=== PATIENT | male | born 1950 | race Caucasian/White ===

== ENCOUNTER → 2017-03-08 | Outpatient (CLI) | payer MEDICARE, OTHER ==
[2017-03-08 17:01] LABS: CREATININE, serum 0.98 mg/dL (0.66-1.25)
== END ==
LOC: COL.LAB 16:08
PROVIDERS: Student in an Organized Health Care Education/Training Program
DX: Z01.89 Encounter for other specified special examinations (principal)

== ENCOUNTER 2017-04-08 10:16 | Day surgery (SDC) | payer MEDICARE, OTHER ==
[~2017-04-08] VITALS: Ht 177.8 cm; Wt 53.0 kg
[2017-04-08] VITALS (7 sets, daily range): BP systolic 144–178; BP diastolic 71–96; PULSE 47–65; TEMP 97–98.6
[2017-04-08 11:22] LABS: CALCIUM 9.9 mg/dL (8.4-10.2); CREATININE, serum 0.79 mg/dL (0.66-1.25); POTASSIUM 4.8 mmol/L (3.4-5.0)
[2017-04-08] MEDS ORDERED: ZOLOFT 50MG50 MG PO (11:26)
[2017-04-08] MEDS ORDERED: PERIDEX (CHLOR480 ML MM (11:27)
[2017-04-08] MEDS ORDERED: PROSCAR 5MG5 MG PO (11:27)
[2017-04-08] MEDS ORDERED: NORCO 325 MG-51 TAB PO ×2 (11:27→14:22)
[2017-04-08] MEDS ORDERED: ZESTRIL40 MG PO (11:29)
[2017-04-08] MEDS ORDERED: FORT1000TA PO (11:30)
[2017-04-08] MEDS ORDERED: TOPROL XL 25MG25 MG PO (11:31)
[2017-04-08] MEDS ORDERED: LIPITOR 80MG80 MG PO (11:32)
[2017-04-08] MEDS ORDERED: ASPIRIN 32325 MG/TAB PO (11:32)
[2017-04-08] MEDS ORDERED: PRILOSEC 20MG20 MG PO (14:22)
[2017-04-08] MEDS ORDERED: COLACE 100100 MG/CAP PO (14:22)
== END 2017-04-08 17:09 | disposition home or self-care (01) ==
LOC: SDCO 10:16
PROVIDERS: Surgery
DX: C10.9 Malignant neoplasm of oropharynx, unspecified (principal); C77.9 Secondary and unspecified malignant neoplasm of lymph node, unspecified; C01 Malignant neoplasm of base of tongue; K29.70 Gastritis, unspecified, without bleeding; E43 Unspecified severe protein-calorie malnutrition; I10 Essential (primary) hypertension; E11.9 Type 2 diabetes mellitus without complications; Z79.84 Long term (current) use of oral hypoglycemic drugs; Z85.46 Personal history of malignant neoplasm of prostate; I25.10 Atherosclerotic heart disease of native coronary artery without angina pectoris; Z95.5 Presence of coronary angioplasty implant and graft; Z87.891 Personal history of nicotine dependence; Z82.49 Family history of ischemic heart disease and other diseases of the circulatory system; Z79.82 Long term (current) use of aspirin; E78.00 Pure hypercholesterolemia, unspecified; R13.10 Dysphagia, unspecified; R49.0 Dysphonia
CPT/HCPCS: C1788; J0330; J0690; J1644; J1885; J2405; J2704; J3010; J7030

== ENCOUNTER 2017-06-09 10:00 | Outpatient (RCR) | payer MEDICARE, OTHER ==
[~2017-06-09] VITALS: Ht 177.8 cm; Wt 70.4 kg
[2017-06-09] VITALS (11 sets, daily range): BP systolic 128–172; BP diastolic 71–93; PULSE 54–62; TEMP 97.9–98.5
[~2017-06-09 10:00] MED LIST: ASPIRIN 32325 MG/TAB PO; COLACE 100100 MG/CAP PO; FORT1000TA PO; LIPITOR 80MG80 MG PO; NORCO 325 MG-51 TAB PO; PERIDEX (CHLOR480 ML MM; PRILOSEC 20MG20 MG PO; PROSCAR 5MG5 MG PO; TOPROL XL 25MG25 MG PO; ZESTRIL40 MG PO; ZOLOFT 50MG50 MG PO
== END 2017-06-09 13:56 | disposition home or self-care (01) ==
LOC: EUO 10:00
DX: C77.0 Secondary and unspecified malignant neoplasm of lymph nodes of head, face and neck (principal); C01 Malignant neoplasm of base of tongue
CPT/HCPCS: J7050; P9016

== ENCOUNTER 2017-07-04 09:00 | Outpatient (RCR) | payer MEDICARE, OTHER | END 2017-07-05 | disposition home or self-care (01) | LOC: WSST | DX: R13.12 Dysphagia, oropharyngeal phase (principal); C01 Malignant neoplasm of base of tongue; I10 Essential (primary) hypertension | CPT/HCPCS: G8996-GN; G8997-GN ==

== ENCOUNTER 2017-08-15 10:00 | Outpatient (RCR) | payer MEDICARE, OTHER | END 2017-10-09 | disposition home or self-care (01) | LOC: WSST | DX: C01 Malignant neoplasm of base of tongue (principal); I10 Essential (primary) hypertension | CPT/HCPCS: G8997-GN; G8998-GN ==

== ENCOUNTER → 2018-11-14 | Outpatient (CLI) | payer MEDICARE, OTHER | LOC: COL.RAD 08:18 | DX: S43.492A Other sprain of left shoulder joint, initial encounter (principal) | CPT/HCPCS: J3301; Q9967 ==

== ENCOUNTER 2019-03-07 14:23 | Emergency (ER) | payer MEDICARE, OTHER ==
[~2019-03-07] VITALS: Ht 177.8 cm; Wt 64.5 kg
[2019-03-07 14:32] VITALS: TEMP 97.3
[2019-03-07 15:37] LABS: HEMOGLOBIN 11.1 g/dl (13.5-18.0); MEAN CELL VOLUME 102 fl (80.0-100.0); MEAN CORPUSCULAR HEMOGLOBIN 34 pg (27.0-31.0); MEAN CORPUSCULAR HGB CONC 33 g/dl (33.0-37.0); MEAN PLATELET VOLUME 10.3 fl (7.4-10.4); PLATELET COUNT 238 K/mm3 (130-400); RED BLOOD COUNT 3.28 M/mm3 (4.20-5.60); REDCELL DISTRIBUTION WIDTH-CV 12.6 % (11.5-14.5)
[2019-03-07 15:43] LABS: HEMATOCRIT 33.3 % (42.0-52.0)
[2019-03-07 15:54] LABS: ALBUMIN 3.9 gm/dL (3.5-5.0); BILIRUBIN,TOTAL 0.4 mg/dL (0.0-1.0); CALCIUM 9.3 mg/dL (8.4-10.2); CREATININE, serum 0.88 (0.66-1.25); POTASSIUM 4.3 mmol/L (3.4-5.0); TOTAL PROTEIN 6.9 gm/dL (6.4-8.2)
[2019-03-07 15:56] LABS: BAND 2 % (0-10); EOSINOPHIL 1 % (0-4); LYMPHOCYTE 3 % (20.0-51.0); NEUTROPHILS 88 % (42.0-75.2); PLATELET ESTIMATE NORMAL (NORMAL)
[2019-03-07 16:48] LABS: COLLECTION METHOD CLEAN CATCH
[2019-03-07 17:08] LABS: PH 7 (5-8); SQUAMOUS EPITHELIAL None Seen /hpf; URINE APPEARANCE Hazy; URINE BACTERIA Rare /hpf; URINE BILIRUBIN Negative (NEGATIVE); URINE BLOOD 2+ (NEGATIVE); URINE COLOR Yellow; URINE GLUCOSE 1+ (NEGATIVE); URINE KETONE Negative (NEGATIVE); URINE LEUKOCYTE ESTERASE Negative (NEGATIVE); URINE NITRATE Negative (NEGATIVE); URINE PROTEIN(semi-quant) Negative (NEGATIVE); URINE UROBILINOGEN Negative (NEGATIVE)
[2019-03-07 18:20] VITALS: BP 163/89; PULSE 87
== END 2019-03-07 18:41 | disposition home or self-care (01) ==
LOC: COL.ER 14:23
PROVIDERS: Family Medicine
DX: K59.00 Constipation, unspecified (principal); E86.0 Dehydration; Z79.84 Long term (current) use of oral hypoglycemic drugs; Z79.82 Long term (current) use of aspirin; Z85.818 Personal history of malignant neoplasm of other sites of lip, oral cavity, and pharynx
CPT/HCPCS: J2405; J2550; J7030

== ENCOUNTER 2019-03-26 13:58 | Outpatient (RCR) | payer MEDICARE, OTHER ==
[2019-03-29] MEDS ORDERED: NORCO 325 MG-51 TAB PO (08:22)
[2019-03-29] MEDS ORDERED: LEVEMIR100 U/ML SQ (08:23)
[2019-03-29] MEDS ORDERED: NOVOLOG 100U100 U/M1 SQ (08:27)
[2019-03-29] MEDS ORDERED: PRILOSEC 20MG20 MG PO (08:28)
[2019-03-29] MEDS ORDERED: FENTANYL 25 MCG TD (08:29)
[2019-03-29] MEDS ORDERED: DOXYCYCLINE 10100 MG PO (08:31)
[2019-03-29] MEDS ORDERED: REMERON30 MG PO (08:31)
[2019-03-29] MEDS ORDERED: ZOFRAN 4MG T4 MG/TAB PO (08:32)
[2019-03-29] MEDS ORDERED: SYNTHROID0.075 MG/T PO (08:32)
[2019-03-29] MEDS ORDERED: COMPAZINE 110 MG/TAB PO (08:33)
[2019-05-05] MEDS ORDERED: DIFLUCAN200 MG PO (19:54)
[2019-05-05] MEDS ORDERED: ZOVIRAX 200MG200 MG PO (19:55)
[2019-05-09] MEDS ORDERED: IPRATROPIUM BROM3 M1 IH (09:23)
[2019-05-09] MEDS ORDERED: ZOFRAN ODT8 MG PO (09:25)
[2019-05-09] MEDS ORDERED: FENTANYL 25 MCG TD (09:26)
[2019-05-09] MEDS ORDERED: TRANSDERM-0.5 MG/21 TD (09:28)
[2019-05-09] MEDS ORDERED: ROXANOL 20MG20 MG/ML SL (09:28)
[2019-05-09] MEDS ORDERED: ARTIFICIAL TEAR15 M7 OP (09:28)
[2019-05-09] MEDS ORDERED: DULCOLAX S10 MG/SUPP RC (09:28)
[2019-05-09] MEDS ORDERED: ATIVAN 1MG T1 MG/TAB PO (09:28)
[2019-05-09] MEDS ORDERED: OXYGEN MC (09:32)
== END 2019-06-24 | disposition home or self-care (01) ==
LOC: WSST
DX: C01 Malignant neoplasm of base of tongue (principal); E11.9 Type 2 diabetes mellitus without complications

== ENCOUNTER → 2019-03-26 | Outpatient (CLI) | payer MEDICARE, OTHER | LOC: COL.RAD 09:06 | DX: M25.512 Pain in left shoulder (principal) | CPT/HCPCS: J3301; Q9967 ==

== ENCOUNTER 2019-03-29 07:36 | Outpatient (CLI) | payer MEDICARE, OTHER ==
[~2019-03-29] VITALS: Ht 177.8 cm; Wt 62.0 kg
[2019-03-29 08:19] VITALS: BP 144/84; PULSE 57; TEMP 98.3
[2019-03-29] MEDS ORDERED: NORCO 325 MG-51 TAB PO (08:22)
[2019-03-29] MEDS ORDERED: LEVEMIR100 U/ML SQ (08:23)
[2019-03-29] MEDS ORDERED: NOVOLOG 100U100 U/M1 SQ (08:27)
[2019-03-29] MEDS ORDERED: PRILOSEC 20MG20 MG PO (08:28)
[2019-03-29] MEDS ORDERED: FENTANYL 25 MCG TD (08:29)
[2019-03-29] MEDS ORDERED: DOXYCYCLINE 10100 MG PO (08:31)
[2019-03-29] MEDS ORDERED: REMERON30 MG PO (08:31)
[2019-03-29] MEDS ORDERED: SYNTHROID0.075 MG/T PO (08:32)
[2019-03-29] MEDS ORDERED: ZOFRAN 4MG T4 MG/TAB PO (08:32)
[2019-03-29] MEDS ORDERED: COMPAZINE 110 MG/TAB PO (08:33)
[2019-03-29 08:37] LABS: POTASSIUM 4.5 mmol/L (3.4-5.0)
--- NOTE | 2019-03-29 08:57 | NUR ---
Pt presented for chemotherapy treatent with erbitux today which is his first treatment. accompanies him. Initial premedications are in process. Pharmacist Johnny Raymond is here to talk with pt and his about side effects and provided printed information. Admission assessment completed by Vera OBREGON.
--- NOTE | 2019-03-29 11:24 | NUR ---
1040 Pt began to feel nauseated, flushed, and was moist with perspiration. His vital signs remained stable, BP 147/82, P67, 02 [id number], and respirations re mained unlabored at 18. Pt got to the toilet to throw up during this time. Dr Panchal's office notified of pt symptoms, the fact the first bag of 100mg was completed and the second bag had not been started. During the break from the medication, pt reported that he was feeling better. Dr Panchal did order solumedrol 62.5mg IV x1 and this was given after the line was flushed with 10ml NS. Pt continues to report that he is feeling more like normal again.
--- NOTE | 2019-03-29 11:48 | NUR ---
Pt is sleeping at this time with slow steady respirations. Erbitux was restarted at 25ml/hr after talking with Dr Panchal as pt had reported feeling "pretty back to where he started from". BP 158/90, R 16, P75.
--- NOTE | 2019-03-29 12:11 | NUR ---
BP 156/99, P55, R 16. Pt continues to sleep in semi fowlers position. went home for a little while. Erbitux continues at 25ml/hr.
--- NOTE | 2019-03-29 13:36 | NUR ---
Pt has developed a rash on his face, arms and legs. Dr Panchal was notified at the office at 1248 of rash and concern over Joaquin's elevated BP running in 160's over 90's. Erbitux was stopped at time of rash noted. Order was recieved from Dr Panchal for benadryl as this rash is causing a lot of itching and discomfort. See MAR. was notified of erbitux being discontinued at this point and that we will be monitoring Joaquin for a period of time. Before administering benadryl, I flushed the line with NS 20ml. Erbitux was bagged and taken to pharmacy for disposal in black box. Latest BP is 150/89, P 74, R 16, and 02 sat at95%. Pt is asleep at this time. VS signs during this reaction time were: 1251 BP 162/107, P 78, R16 1255 BP 169/90 P56, R 16 1310 BP 157/99, P75, R 16 1325 BP 138/98, P 85, 14 1340 BP 150/89, P 73, R 16
--- NOTE | 2019-03-29 14:14 | NUR ---
Report called to Dr Panchal at office. Pt's rash is slowly fading although is still present. His BP at last check was 146/97, P 64, R 15, 02 sat 97%. Pt is to follow up at office in the morning at scheduled time, He was instructed to not take any oral magnesium as previously discussed. He may use oral benadryl for itching if desired and should follow package directions. Pt states he feels ready to go home and Dr Panchal feels it is appropriate to discharge at this time to return home with . Was instructed to return to ER if rash should reoccur, respiratory issues occur, or if notes similar reaction symptoms eaperienced earlier. Pt and verbalize understanding. H
--- NOTE | 2019-03-29 14:40 | NUR ---
Pt discharged per w/c with Ambrosio Martinez RN and .
--- NOTE | 2019-03-29 14:48 | NUR ---
Pt discharged to 's care to go home at 1440 per wheelchair. Discharge instructions were reviewed to go to Dr day's office at 0845 tomorrow morning for pump placement, not to take oral magnesium, may use OTC benadryl per package instructions if itching becomes problematic. Pt instructed to return to the ER of other symptoms affecting breathing, skin, chest pain should occur.
== END 2019-03-29 14:40 | disposition home or self-care (01) ==
LOC: EUO 07:36
PROVIDERS: Internal Medicine
DX: C10.9 Malignant neoplasm of oropharynx, unspecified (principal)
CPT/HCPCS: J1100; J1200; J1644; J2405; J2930; J3475; J9055

== ENCOUNTER → 2019-04-16 | Outpatient (CLI) | payer MEDICARE, OTHER ==
[~2019-04-16] MED LIST changes: +COMPAZINE 110 MG/TAB PO; +DOXYCYCLINE 10100 MG PO; +FENTANYL 25 MCG TD; +LEVEMIR100 U/ML SQ; +NOVOLOG 100U100 U/M1 SQ; +REMERON30 MG PO; +SYNTHROID0.075 MG/T PO; +ZOFRAN 4MG T4 MG/TAB PO
== END ==
LOC: COL.RAD 14:50
DX: C01 Malignant neoplasm of base of tongue (principal); E11.9 Type 2 diabetes mellitus without complications